=== PATIENT | female | born 1980 | race Caucasian/White ===

== ENCOUNTER 2020-05-20 02:53 | Inpatient (IN) ==
--- OUTSIDE RECORDS SUMMARY | 2020-05-20 03:09 | External Medical Summary | Continuity of Care Document ---
:1980 Author Name Alexander Hernandez, Provider Address Unavailable Unavailable , Care Team Providers Name Role Phone Alexander Hernandez, ObGyn Unavailable [email or web address] Kael Moya Unavailable [email or web address] Problems Encounter for gynecological examination (V72.31) (Z01.419) Joint pain, hip (719.45) (M25.559) Depression (311) (F32.9) Anxiety (300.00) (F41.9) Lower back pain (724.2) (M54.5) Screening for malignant neoplasm of breast (V76.10) (Z12.39) Pelvic pain (R10.2) Abdominal pain, RLQ (right lower quadrant) (789.03) (R10.31) Allergies and Adverse Reactions Penicillins (Allergy) Medications Venlafaxine HCl ER 150 MG Oral Capsule E xtended Release 24 Hour; take 1 capsule by mouth every morning LINDA Gan Start: 30-Mar-2012 Quantity: 30 Refills: 0 Fish Oil CAPS Refills: 0 Multiple Vitamins TABS Refills: 0 Procedures History of Tonsillectomy With Adenoidectomy Status: Completed History of Oral Surgery Tooth Extraction Status: Completed Immunizations PPD On: 27-Oct-2012 Lot #: [id number], [employer] Family History Mother Family history of low back pain (V17.89) (Z82.69) Status: Ac tive Father Family history of hypertension (V17.49) (Z82.49) Status: Act desi Family history of hyperlipidemia (V18.19) (Z83.438) Status: Active Social History - Smoking Status Smoker Plan of Treatment Planned Observations Planned Goals not documented Results No Known Results Results not documented
[2020-05-20] MEDS ORDERED: OXYTOCIN 30 UNITS/500ML NSS ONE (03:19)
[2020-05-20] MEDS ORDERED: OXYTOCIN 30 UNITS/500 ML BAG IV PRN ×2 (03:40→03:41)
[2020-05-20] MEDS ORDERED: LACTATED RINGER'S 1,000 ML IV PRN (03:40)
[2020-05-20] MEDS ORDERED: bisacodyL 10 MG SUPP PR PRN (03:41)
[2020-05-20] MEDS ORDERED: MEASLES, MUMPS & RUBELLA VIRUS VIAL SQ ONE (03:41)
[2020-05-20] MEDS ORDERED: SUPERCREAM 0.870% 15 GM JAR EXT PRN (03:41)
[2020-05-20] MEDS ORDERED: DIPHTHERIA/TETANUS/PERTUSSIS 0.5 ML SYR/VIAL IM ONE (03:41)
[2020-05-20] MEDS ORDERED: HYDROCORTISONE ACETATE 25 MG SUPP PR PRN (03:41)
[2020-05-20] MEDS ORDERED: ACETAMINOPHEN 325 MG TAB PO PRN (03:41)
[2020-05-20] MEDS ORDERED: BENZOCAINE 20% AER SPR 82.5 GM CAN EXT PRN (03:41)
[2020-05-20] MEDS: IBUPROFEN 600 MG TAB PO PRN ×4 (03:55→20:36)
[2020-05-20 05:20] LABS: Hemoglobin 12.2 g/dL (12.0-16.0); Mean Corpuscular Hemoglobin 29.7 pg (25-34); Mean Corpuscular Hgb Conc 33.9 g/dL (32-36); Mean Corpuscular Volume 87.6 fL (80-100); Mean Platelet Volume 11.5 fL (7.4-10.4); Platelet Count 222 K/uL (130-400); RDW Coefficient of Variation 13.3 % (11.5-14.5); RDW Standard Deviation 42.7 fL (36.4-46.3); Red Blood Count 4.11 M/uL (4.2-5.4); White Blood Count 15.52 K/uL (4.8-10.8)
[2020-05-20] MEDS: buPROPion XL 300 MG TABCR PO SCH (07:25)
[2020-05-20] MEDS: FERROUS SULFATE 325 MG TAB PO SCH (07:25)
[2020-05-20] MEDS: PRENATAL VITAMIN 1 TAB PO SCH (07:25)
[2020-05-20] MEDS: DOCUSATE SODIUM 100 MG CAP PO SCH ×2 (07:25→20:36)
--- NOTE | 2020-05-20 12:26 | Delivery Summary ---
DATE OF OPERATION: 05/20/2020 DETAILS OF DELIVERY: The patient is a 39-year-old G1, P0, at 40 weeks of gestation, who presented to labor and delivery in active labor and spontaneous rupture of membranes and found to be fully dilated and desired to push. Her contractions started at 12:55 a.m. this morning and they progressed rapidly. When she came to labor and delivery, she was already ready to push. She pushed only 3 times and delivered the head without difficulty. There was a nuchal cord around neck x1, which was reduced and then shoulders were delivered with minimal traction. Baby was handed off to the mother where mouth and nose were suctioned. Cord was clamped x2 and cut. There was a true knot on the cord. The baby was crying and moving vigorously. Then, vagina and perineum were checked for lacerations. They were intact. No lacerations were found and then placenta was found to be in the vagina, delivered spontaneously as intact and complete. Uterus was explored, found to be empty. Lower segment was cleared of all clots and debris. Fundus was firm. EBL was 300 mL. Mom and baby tolerated the procedure well. Baby was a viable female infant, Apgars 8/9, weight is 3239 gr. No complications happened and I was present during the whole procedure. I attest to the content of the Intraoperative Record and any orders documented therein. Any exceptions are noted below. [email or web address]
[2020-05-21] MEDS: IBUPROFEN 600 MG TAB PO PRN ×2 (03:30→23:30)
[2020-05-21 06:38] LABS: Hematocrit (blood only) 32.2 % (37-47); Hemoglobin 11.2 g/dL (12.0-16.0); Mean Corpuscular Hemoglobin 30.1 pg (25-34); Mean Corpuscular Hgb Conc 34.8 g/dL (32-36); Mean Corpuscular Volume 86.6 fL (80-100); Platelet Count 224 K/uL (130-400); RDW Coefficient of Variation 13.5 % (11.5-14.5); RDW Standard Deviation 43.1 fL (36.4-46.3); Red Blood Count 3.72 M/uL (4.2-5.4); White Blood Count 12.19 K/uL (4.8-10.8)
--- NOTE | 2020-05-21 08:18 | Obstetrical Progress Note ---
Date of Service May 21, 2020 Assessment & Plan Admission and Anticipated Discharge Date Admission Date: May 20, 2020 Subjective PPD#1 doing well passing gas tolerating diet Physical Exam Constitutional: WD/WN, vitals as above comfortable abdomen soft and non- tender no edema neg Neema's for tent d/c in AM Results & Data ([facility]) Vital Signs (Past 12 Hours) Vital Signs Temp Pulse Resp BP Pulse Ox 05/21/20 07:45 36.5 C 65 20 117/73 05/21/20 03:20 36.5 C 78 16 106/71 98 05/20/20 23:20 36.5 C 73 16 116/76 98 05/20/20 20:20 36.5 C 75 18 101/65 Laboratory Results 05/20/20 05/20/20 05/20/20 03:40 03:40 04:05 WBC 15.52 H RBC 4.11 L Hgb 12.2 Hct 36.0 L MCV 87.6 MCH 29.7 MCHC 33.9 RDW Std Deviation 42.7 RDW Coeff of Jannet 13.3 Plt Count 222 MPV 11.5 H COVID-19 Eval [facility] SARS-CoV-2, RNA, NAAT NEGATIVE 05/21/20 06:18 WBC 12.19 H RBC 3.72 L Hgb 11.2 L Hct 32.2 L MCV 86.6 MCH 30.1 MCHC 34.8 RDW Std Deviation 43.1 RDW Coeff of Jannet 13.5 Plt Count 224 MPV 11.0 H COVID-19 Eval Order SARS-CoV-2, RNA, NAAT
[2020-05-21] MEDS: DOCUSATE SODIUM 100 MG CAP PO SCH ×2 (08:36→23:30)
[2020-05-21] MEDS: buPROPion XL 300 MG TABCR PO SCH (08:36)
[2020-05-21] MEDS: FERROUS SULFATE 325 MG TAB PO SCH (08:36)
[2020-05-21] MEDS: PRENATAL VITAMIN 1 TAB PO SCH (08:36)
[2020-05-21] MEDS ORDERED: bisacodyL 5 MG TABEC PO SCH (20:00)
[2020-05-22 06:50] LABS: Hematocrit (blood only) 36.1 % (37-47); Hemoglobin 12.3 g/dL (12.0-16.0)
[2020-05-22] MEDS: IBUPROFEN 600 MG TAB PO PRN (07:27)
[2020-05-22] MEDS: FERROUS SULFATE 325 MG TAB PO SCH (07:27)
[2020-05-22] MEDS: PRENATAL VITAMIN 1 TAB PO SCH (07:27)
[2020-05-22] MEDS: buPROPion XL 300 MG TABCR PO SCH (07:27)
--- NOTE | 2020-05-22 07:54 | Obstetrical Progress Note ---
Date of Service May 22, 2020 Assessment & Plan Admission and Anticipated Discharge Date Admission Date: May 20, 2020 Subjective Patient is seen and examined. She feels well, no complaints. Ambulating without dizziness Voiding without difficulty Tolerating regular diet with out N&V Bleeding is minimal No fever/ chills/ CP/ SOB/ N&V/ Leg pain Breast feeding without problems Vital Signs Temp Pulse Resp BP Pulse Ox 05/22/20 07:47 36.3 C L 73 20 119/81 05/21/20 23:35 36.6 C 60 18 128/88 100 05/21/20 20:00 36.6 C 76 18 112/75 100 05/21/20 15:30 36.7 C 76 18 113/76 100 Lab Results 05/20/20 05/20/20 05/20/20 Range/Units 03:40 03:40 04:05 WBC 15.52 H (4.8-10.8) K/uL RBC 4.11 L (4.2-5.4) M/uL Hgb 12.2 (12.0-16.0) g/dL Hct 36.0 L (37-47) % MCV 87.6 (80-100) fL MCH 29.7 (25-34) pg MCHC 33.9 (32-36) g/dL RDW Std Deviation 42.7 (36.4-46.3) fL RDW Coeff of Jannet 13.3 (11.5-14.5) % Plt Count 222 (130-400) K/uL MPV 11.5 H (7.4-10.4) fL COVID-19 Eval Order Covid19 [facility] SARS-CoV-2, RNA, NAAT NEGATIVE (NEGATIVE) 05/21/20 05/22/20 Range/Units 06:18 06:28 WBC 12.19 H (4.8-10.8) K/uL RBC 3.72 L (4.2-5.4) M/uL Hgb 11.2 L 12.3 (12.0-16.0) g/dL Hct 32.2 L 36.1 L (37-47) % MCV 86.6 (80-100) fL MCH 30.1 (25-34) pg MCHC 34.8 (32-36) g/dL RDW Std Deviation 43.1 (36.4-46.3) fL RDW Coeff of Jannet 13.5 (11.5-14.5) % Plt Count 224 (130-400) K/uL MPV 11.0 H (7.4-10.4) fL COVID-19 Eval Order SARS-CoV-2, RNA, NAAT (NEGATIVE) PE: General: Alert, orientedx3, NAD Abd: soft, NT, fundus firm, below Umbilicus Perineum intact, Lochia rubra minimal Ext; NT, no edema AP: 39 yo s/p , ppd# 2 VSS Afebrile doing well Continue routine care All questions were answered D/C home , f/u in office Results & Data ([facility]) Vital Signs (Past 12 Hours) Vital Signs Temp Pulse Resp BP Pulse Ox 05/22/20 07:47 36.3 C L 73 20 119/81 05/21/20 23:35 36.6 C 60 18 128/88 100 05/21/20 20:00 36.6 C 76 18 112/75 100
== END 2020-05-22 11:45 | disposition home or self-care (01) | DRG 807 ==
LOC: OPB 02:53 → 4S1 03:07 → 4S2 06:50
DX: Z3A.40 40 weeks gestation of pregnancy; Z37.0 Single live birth; O69.81X0 Labor and delivery complicated by cord around neck, without compression, not applicable or unspecified